=== PATIENT | female | born 1965 | race Caucasian/White ===

== ENCOUNTER 2016-08-07 12:44 | Emergency (ER) | payer OTHER, SELFPAY ==
--- NOTE | 2016-08-07 14:01 | REP ---
Clinical: Cough. Comparison: 03/20/2016 . Technique: PA and lateral. Findings: The mediastinum and cardiac silhouette are normal. The lung solares are clear and without acute consolidation, effusion, or pneumothorax. The skeletal structures are intact and normal. Impression: 1. No acute cardiopulmonary process. Signed by Shabbir Kang MD 08/07/2016 01:52 P
[2016-08-07 14:04] LABS: BASO % 0.7 % (0.0-1.0); EOS # 0.1 K/mm3 (0.0-0.50); EOS % 1.5 % (0.0-3.0); LARGE UNSTAINED CELL # 0.1 K/mm3 (0.0-0.4); LARGE UNSTAINED CELL % 1.4 % (0.0-4.0); LYMPH # 1.3 K/mm3 (1.5-4.5); LYMPH % 18.3 % (24.0-44.0); MEAN CORPUSCULAR HEMOGLOBIN 32.7 pg (27.0-33.0); MEAN CORPUSCULAR HGB CONC 35.7 g/dl (32.0-36.5); MEAN CORPUSCULAR VOLUME 91.6 fl (80.0-96.0); MONO # 0.3 K/mm3 (0.0-0.8); MONO % 4.4 % (0.0-5.0); NEUTROPHILS # 5.1 K/mm3 (1.8-7.7); NEUTROPHILS % 73.7 % (36.0-66.0); PLATELET COUNT, AUTOMATED 207 k/mm3 (150-450); RED CELL DISTRIBUTION WIDTH 11.7 % (11.5-14.5); WHITE BLOOD COUNT 6.8 K/mm3 (4.0-10.0)
[2016-08-07] MEDS ORDERED: DOXYCYCLINE HYCLATE 100 MG TAB As Ordered ONE (15:06)
--- NOTE | 2016-08-07 15:16 | EDDOCDS ---
Physician Documentation [facility] [employer] Name: Lindsey Howard Age: 51 yrs Sex: Female : 1965 Arrival Date: 08/07/2016 Time: 12:44 Bed 8 Private MD: Rosy, Family Disposition: 08/07 14:57 Critical Care: Critical care not applicable. pc Disposition: 08/07/16 14:59 Discharged to Home/Self Care. Impression: Acute bronchitis, Hemoptysis, Von Willebrand's disease. - Condition is Stable. - Discharge Instructions: Acute Bronchitis, Hemoptysis. - Prescriptions for Doxycycline Monohydrate 100 mg Oral Tablet - take 1 tablet by ORAL route every 12 hours for 10 days; 20 tablet. - Medication Reconciliation, Referral List Call for Appointment, Local Pharmacy Hours form. - [facility]; When: Call to arrange an appointment; Reason: To establish care. - Problem is new. - Symptoms have improved. HPI: 13:51 This 51 yrs old Female presents to ER via Walkin/Carried/Asstd with pc complaints of Cough. 13:51 The history is obtained from the patient. She has had URI symptoms for 2 days and when pc she awoke this morning, she coughed up blood clots and fresh blood. She has coughed up a few more bloody sputums and clots since. She has Von Willebrand's and became concerned. At their worst, the symptoms were moderate. In the emergency department, the symptoms have resolved. The patient has not experienced similar symptoms in the past. The patient has not recently seen a physician. Historical: - Allergies: Codeine Sulfate (Unknown); Erythromycin (Unknown); IODINEIODINE CONTAINING (Hives, Anaphylaxis); Macrobid (Anaphylaxis); PENICILLINS (Anaphylaxis, Hives); seafood (Anaphylaxis); - Home Meds: 1. none - PMHx: Von Willebrand Disease; - PSHx: uterus suspension; LEEP Procedure; CONE biopsy; - The history from nurses notes was reviewed: and elements of the historical information I have obtained differs from that reported to nursing. - Social history: Smoking status: Patient uses tobacco products, light tobacco smoker. No barriers to communication noted, The patient speaks fluent Welsh. - : The pt / caregiver states he / she is not on anticoagulants. Home medication list is obtained from the patient. - Hospitalizations: : No recent hospitalization is reported. - Exposure Risk Screening:: None identified. - Immunization history:: All immunizations up-to-date. - Family history: Not pertinent. - Social history:: the patient smokes cigarettes 2ppd the patient drinks alcohol, socially. ROS: 13:54 All systems are negative except as listed. pc Exam: 13:54 General Appearance: no acute distress, alert. pc 13:54 EENT: normal eye inspection, ears, nose and throat normal, pharynx normal, mucous membranes moist 13:54 Neck: The exam reveals no acute abnormalities. ROM is normal and painless. No nuchal rigidity is noted.. 13:54 Respiratory: no respiratory distress, normal breath sounds, chest non-tender. 13:54 CVS: regular pulse rate, regular rhythm, normal S1 and S2, no murmurs, strong peripheral pulses. 13:54 Abdomen: soft, non-tender, no organomegaly, normal bowel sounds. 13:54 Back: normal inspection. 13:54 Skin: skin color is normal, warm, dry. 13:54 Extremities: The extremities have a grossly normal appearance, are non-tender, without acute ROM abnormalities. 13:54 Neuro: oriented x 3, cranial nerves normal as tested, no motor deficits, no sensory deficits. 13:54 Psych: normal mood. Vital Signs: 12:47 BP 122 / 62; Pulse 89; Resp 18 S; Temp 98.9(O); Pulse Ox 100% on R/A; Weight 68.04 kg / dd6 150 lbs (R); Height 5 ft. 7 in. (170.18 cm) (R); 13:02 BP 125 / 60 (auto/); ms18 13:03 Pulse 76 MON; Pulse Ox 100% ; ms18 13:16 Pulse 74 MON; Pulse Ox 99% ; ms18 13:17 BP 115 / 58 (auto/); ms18 13:31 Pulse 74 MON; Pulse Ox 100% ; ms18 13:32 BP 117 / 59 (auto/); ms18 13:47 BP 117 / 58 (auto/); ms18 13:48 Pulse 68 MON; Pulse Ox 99% ; ms18 15:14 BP 107 / 65 LA Supine (auto/reg); Pulse 68 RA; Resp 18; Temp 97.9(O); Pulse Ox 99% on tk R/A; Pain 0/10; 12:47 Body Mass Index 23.49 (68.04 kg, 170.18 cm) dd6 MDM: 13:00 ECG WITH READING ER PHYS+CARDIAG ordered. EDMS 13:17 Test interpretation: EKG. pc 13:34 CBC with Diff Ordered. EDMS 13:34 Chest, 2 View (pa\E\lat) Ordered. EDMS 13:54 Differential Diagnosis: hemoptysis; Von Willebrand;. Plan: lab, CXR. Data reviewed: old medical records, vital signs, nurses notes, lab test results, all radiology studies and available results. Test interpretation: X-RAY - interpreted by Radiologist and personally reviewed, 2 view chest, no acute disease. 14:04 [facility] Payment Agreement was scanned into [employer] and attached to record. jp5 14:04 Financial registration complete. jp5 14:12 CBC with Diff Reviewed. pc 14:37 Chest, 2 View (pa\E\lat) Reviewed. pc 14:57 The patient has been re-examined and re-evaluated. The clinical presentation did not pc require any ED treatment or interventions. Physician consultation: Dr. Jero Burk regarding patient's condition, and he advises using ABX and for PCP follow up. Disposition: The historical points, examination findings, and any diagnostic results supporting the provided diagnosis, were discussed with the patient or legal guardian. The need for outpatient follow up with the provider listed on their discharge instructions was discussed. They were encouraged to return to [facility], or the nearest ED, if symptoms worsen/persist, or for any other questions/concerns. 14:58 Doxycycline 100 mg PO once ordered. pc EC:17 Rate is 68 beats/min. Rhythm is regular, Normal Sinus Rhythm. QRS [place] is Normal. [place] pc interval is shortened at 119 msec. QRS interval is normal. QT interval is normal. No Q waves. T waves are Normal. No ST changes noted. Clinical impression: Normal Sinus Rhythm and Incomplete RBBB. Administered Medications: 15:13 Not Given (Patient Refused): Doxycycline 100 mg PO once ck1 Signatures: Dispatcher [employer] EDMS Rodolfo Mott MD MD pc Kim-Ashcraft, Connie, RN RN ck1 Kami Herrera RN RN rs3 Leonor Jones jp5 The chart was reviewed and I authenticate all verbal orders and agree with the evaluation and treatment provided.Corrections: (The following items were deleted from the chart) 13:51 12:51 PMHx: Right ventricle blockage; rs3 pc 13:54 13:51 PMHx: none; pc pc Attachments: 14:04 [facility] Payment Agreement jp5 MTDD
--- NOTE | 2016-08-07 15:16 | EDDOCDS ---
Nurse's Notes [facility] Name: Lindsey Howard Age: 51 yrs Sex: Female : 1965 Arrival Date: 08/07/2016 Time: 12:44 Bed 8 Private MD: Rosy, Family Dr Diagnosis: Acute bronchitis;Hemoptysis;Von Willebrand's disease Presentation: 08/07 12:49 Presenting complaint: Patient states: chest tightness and coughing up blood since this rs3 morning. chest pain radiates to Left arm since last night. Aspirin was not taken prior to arrival. Adult Sepsis Screening: The patient does not have new or worsening altered mentation. Patient's respiratory rate is less than 22. Systolic blood pressure is greater than 100. Patient has a qSOFA score of 0- Negative Sepsis Screen. Suicide/Homicide risk assessment- the patient denies having any suicidal and/or homicidal ideations and does not present with any other emotional, behavioral or mental health complaints. Status: Patient is not a public service representative or dependent. Transition of care: patient was not received from another setting of care. 12:49 Acuity: DIAN Level 3 rs3 12:49 Method Of Arrival: Walkin/Carried/Asstd rs3 Triage Assessment: 12:51 General: Appears in no apparent distress. Pain: Location: chest. HIV screening NA for rs3 this visit Offered previously. Cardiovascular: Chest pain is described as Pain is 7 out of 10 on a pain scale. radiates to left arm(s) episodes are intermittent began last night. Historical: - Allergies: Codeine Sulfate (Unknown); Erythromycin (Unknown); IODINEIODINE CONTAINING (Hives, Anaphylaxis); Macrobid (Anaphylaxis); PENICILLINS (Anaphylaxis, Hives); seafood (Anaphylaxis); - Home Meds: 1. none - PMHx: Von Willebrand Disease; - PSHx: uterus suspension; LEEP Procedure; CONE biopsy; - The history from nurses notes was reviewed: and elements of the historical information I have obtained differs from that reported to nursing. - Social history: Smoking status: Patient uses tobacco products, light tobacco smoker. No barriers to communication noted, The patient speaks fluent Bangladeshi. - : The pt / caregiver states he / she is not on anticoagulants. Home medication list is obtained from the patient. - Hospitalizations: : No recent hospitalization is reported. - Exposure Risk Screening:: None identified. - Immunization history:: All immunizations up-to-date. - Family history: Not pertinent. - Social history:: the patient smokes cigarettes 2ppd the patient drinks alcohol, socially. Screenin:14 Screening information is obtained from the patient. Fall risk: No risks identified. ck1 Assistance ADL's: requires no assistance with activities of daily living. Abuse/DV Screen: The patient / caregiver reports he/she is: not in a situation that causes fear, pain or injury. Nutritional screening: No deficits noted. Advance Directives: Currently, there is no health care proxy. home support is adequate. Assessment: 13:55 General: Appears in no apparent distress, comfortable, Behavior is appropriate for age, ms18 cooperative. Neurological: Level of Consciousness is awake, alert, obeys commands, Oriented to person, place, time. Cardiovascular: Capillary refill < 3 seconds. Respiratory: Airway is patent Respiratory effort is even, unlabored, Reports shortness of breath cough that is. Derm: Skin is pink, warm & dry. 15:15 General: Appears in no apparent distress, comfortable, Behavior is appropriate for age, ck1 cooperative. Neurological: Level of Consciousness is awake, alert, obeys commands, Oriented to person, place, time. Cardiovascular: Rhythm is regular. Respiratory: Respiratory effort is unlabored, Respiratory pattern is regular, symmetrical. Derm: Skin is pink, warm & dry. Vital Signs: 12:47 BP 122 / 62; Pulse 89; Resp 18 S; Temp 98.9(O); Pulse Ox 100% on R/A; Weight 68.04 kg dd6 (R); Height 5 ft. 7 in. (170.18 cm) (R); 13:02 BP 125 / 60 (auto/); ms18 13:03 Pulse 76 MON; Pulse Ox 100% ; ms18 13:16 Pulse 74 MON; Pulse Ox 99% ; ms18 13:17 BP 115 / 58 (auto/); ms18 13:31 Pulse 74 MON; Pulse Ox 100% ; ms18 13:32 BP 117 / 59 (auto/); ms18 13:47 BP 117 / 58 (auto/); ms18 13:48 Pulse 68 MON; Pulse Ox 99% ; ms18 15:14 BP 107 / 65 LA Supine (auto/reg); Pulse 68 RA; Resp 18; Temp 97.9(O); Pulse Ox 99% on tk R/A; Pain 0/10; 12:47 Body Mass Index 23.49 (68.04 kg, 170.18 cm) dd6 Vitals: 12:47 Log In Time: August 07, 2016 at 12:45. dd6 12:48 RN notified that patient meets Red Flag criteria. dd6 ED Course: 12:46 Patient visited by Seth Stark PCA. dd6 12:46 Unknown, Family Dr is Private Physician. dd6 12:46 Patient moved to Waiting dd6 12:50 Triage Initiated rs3 12:53 Lizzie King,RN is Primary Nurse. rs3 12:53 Sydnee Gavin,CASTILLO is Primary Nurse. rs3 12:53 Patient moved to 8 rs3 13:03 The patient / caregiver is instructed regarding the plan of care and ED course. ms18 Property :Personal belongings accompany Pt. 13:11 EKG done. (by ED staff). Reviewed by Rodolfo Mott MD. rs6 13:12 Patient visited by Patience Diop PCA. rs6 13:12 Rodolfo Mott MD is Attending Physician. pc 13:12 Patient visited by Patience Diop PCA. rs6 13:12 Pt greeted and oriented to ED. Patient advised of names of staff involved in care, rs6 location of call [facility], wait times and NPO status. Accompanied by Significant Other, Patient has correct armband on for positive identification. Placed in gown. Bed in low position. Call light in reach. Side rails up X 1. mat tester on. Pulse ox on. NIBP on. 13:12 Assisted to bathroom. rs6 13:13 Patient visited by Patience Diop PCA. rs6 13:21 Patient visited by Rodolfo Mott MD. pc 13:38 Patient visited by Masha King RN. ms18 13:38 Patient moved to Radiology ms18 13:47 Patient moved to 8 ms18 13:55 Patient visited by Masha King RN. ms18 13:55 CBC with Diff Sent. ms18 13:59 Patient name changed from Lindsey\S\M\S\Paro\S\ to Lindsey\S\Indu\S\Paro. EDMS 14:04 [facility] Payment Agreement was scanned into [employer] and attached to record. jp5 14:26 Chest, 2 View (pa\E\lat) Returned. EDMS 14:56 Patient visited by Rodolfo Mott MD. pc 14:59 [facility] is Referral Physician. pc 15:13 No IV's were initiated during this patient's visit. No procedures done that require ck1 assistance. 15:14 Patient visited by Mani Santos. tk Administered Medications: 15:13 Not Given (Patient Refused): Doxycycline 100 mg PO once ck1 Order Results: Lab Order: CBC with Diff; SPEC'M 08/07/16 13:53 Test: WHITE BLOOD COUNT; Value: 6.8; Range: 4.0-10.0; Units: K/mm3; Status: F Test: RED BLOOD COUNT; Value: 4.66; Range: 4.00-5.40; Units: M/mm3; Status: F Test: HEMOGLOBIN; Value: 15.2; Range: 12.0-16.0; Units: g/dl; Status: F Test: HEMATOCRIT; Value: 42.7; Range: 36.0-47.0; Units: %; Status: F Test: MEAN CORPUSCULAR VOLUME; Value: 91.6; Range: 80.0-96.0; Units: fl; Status: F Test: MEAN CORPUSCULAR HEMOGLOBIN; Value: 32.7; Range: 27.0-33.0; Units: pg; Status: F Test: MEAN CORPUSCULAR HGB CONC; Value: 35.7; Range: 32.0-36.5; Units: g/dl; Status: F Test: RED CELL DISTRIBUTION WIDTH; Value: 11.7; Range: 11.5-14.5; Units: %; Status: F Test: PLATELET COUNT, AUTOMATED; Value: 207; Range: 150-450; Units: k/mm3; Status: F Test: NEUTROPHILS %; Value: 73.7; Range: 36.0-66.0; Abnormal: Above high normal; Units: %; Status: F Test: LYMPH %; Value: 18.3; Range: 24.0-44.0; Abnormal: Below low normal; Units: %; Status: F Test: MONO %; Value: 4.4; Range: 0.0-5.0; Units: %; Status: F Test: EOS %; Value: 1.5; Range: 0.0-3.0; Units: %; Status: F Test: BASO %; Value: 0.7; Range: 0.0-1.0; Units: %; Status: F Test: LARGE UNSTAINED CELL %; Value: 1.4; Range: 0.0-4.0; Units: %; Status: F Test: NEUTROPHILS #; Value: 5.1; Range: 1.8-7.7; Units: K/mm3; Status: F Test: LYMPH #; Value: 1.3; Range: 1.5-4.5; Abnormal: Below low normal; Units: K/mm3; Status: F Test: MONO #; Value: 0.3; Range: 0.0-0.8; Units: K/mm3; Status: F Test: EOS #; Value: 0.1; Range: 0.0-0.50; Units: K/mm3; Status: F Test: BASO #; Value: 0.0; Range: 0.0-0.2; Units: K/mm3; Status: F Test: LARGE UNSTAINED CELL #; Value: 0.1; Range: 0.0-0.4; Units: K/mm3; Status: F Radiology Order: Chest, 2 View (pa\E\lat) Test: Chest, 2 View (pa\E\lat) REASON FOR EXAMINATION: Cough; Clinical: Cough.; ; Comparison: 03/20/2016 .; ; Technique: PA and lateral.; ; Findings:; The mediastinum and cardiac silhouette are normal. The lung solares are clear and; without acute consolidation, effusion, or pneumothorax. The skeletal structures; are intact and normal.; ; Impression:; 1. No acute cardiopulmonary process.; ; ; Signed by; Shabbir Kang MD 08/07/2016 01:52 P; Outcome: 14:59 Discharge ordered by Provider. pc 15:14 Discharge Assessment: Patient awake, alert and oriented x 3. No cognitive and/or ck1 functional deficits noted. Patient verbalized understanding of disposition instructions. patient administered narcotics - no. The following High Risk Discharge criteria are identified: None. Discharged to home ambulatory, with family. Condition: stable. Discharge instructions given to patient, family, Instructed on discharge instructions, follow up and referral plans. medication usage, Demonstrated understanding of instructions, medications, Pt was receptive of discharge instructions/ teaching. Prescriptions given X 1. No special radiology studies were completed. 15:15 Patient left the ED. ck1 Signatures: Dispatcher [employer] EDMS Rodolfo Mott MD MD pc Kim-Ashcraft, Connie, RN RN ck1 Seth Stark, NEWSPAPER WRITER NEWSPAPER WRITER dd6 Kami Herrera RN RN rs3 Masha King RN RN ms18 Patience Diop, NEWSPAPER WRITER NEWSPAPER WRITER rs6 Leonor Jones jp5 Mani Santos Corrections: (The following items were deleted from the chart) 12:53 12:49 Presenting complaint: Patient states: chest tightness and coughing up blood since rs3 this morning. rs3 13:13 13:11 EKG done. (by ED staff). Reviewed by Laura JUNG rs6 rs6 13:51 12:51 PMHx: Right ventricle blockage; rs3 pc 13:54 13:51 PMHx: none; pc pc MTDD
--- NOTE | 2016-08-08 13:03 | ECGEPIP ---
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
--- NOTE | 2016-08-09 16:16 | EDDOCDS ---
Physician Documentation [facility] Name: Lindsey Howard Age: 51 yrs Sex: Female : 1965 Arrival Date: 08/07/2016 Time: 12:44 Bed 8 Private MD: Rosy, Family Disposition: 08/07 14:57 Critical Care: Critical care not applicable. pc Disposition: 08/07/16 14:59 Discharged to Home/Self Care. Impression: Acute bronchitis, Hemoptysis, Von Willebrand's disease. - Condition is Stable. - Discharge Instructions: Acute Bronchitis, Hemoptysis. - Prescriptions for Doxycycline Monohydrate 100 mg Oral Tablet - take 1 tablet by ORAL route every 12 hours for 10 days; 20 tablet. - Medication Reconciliation, Referral List Call for Appointment, Local Pharmacy Hours form. - Follow [facility]; When: Call to arrange an appointment; Reason: To establish care. - Problem is new. - Symptoms have improved. HPI: 13:51 This 51 yrs old Female presents to ER via Walkin/Carried/Asstd with pc complaints of Cough. 13:51 The history is obtained from the patient. She has had URI symptoms for 2 days and when pc she awoke this morning, she coughed up blood clots and fresh blood. She has coughed up a few more bloody sputums and clots since. She has Von Willebrand's and became concerned. At their worst, the symptoms were moderate. In the emergency department, the symptoms have resolved. The patient has not experienced similar symptoms in the past. The patient has not recently seen a physician. Historical: - Allergies: Codeine Sulfate (Unknown); Erythromycin (Unknown); IODINEIODINE CONTAINING (Hives, Anaphylaxis); Macrobid (Anaphylaxis); PENICILLINS (Anaphylaxis, Hives); seafood (Anaphylaxis); - Home Meds: 1. none - PMHx: Von Willebrand Disease; - PSHx: uterus suspension; LEEP Procedure; CONE biopsy; - The history from nurses notes was reviewed: and elements of the historical information I have obtained differs from that reported to nursing. - Social history: Smoking status: Patient uses tobacco products, light tobacco smoker. No barriers to communication noted, The patient speaks fluent Hebrew. - : The pt / caregiver states he / she is not on anticoagulants. Home medication list is obtained from the patient. - Hospitalizations: : No recent hospitalization is reported. - Exposure Risk Screening:: None identified. - Immunization history:: All immunizations up-to-date. - Family history: Not pertinent. - Social history:: the patient smokes cigarettes 2ppd the patient drinks alcohol, socially. ROS: 13:54 All systems are negative except as listed. pc Exam: 13:54 General Appearance: no acute distress, alert. pc 13:54 EENT: normal eye inspection, ears, nose and throat normal, pharynx normal, mucous membranes moist 13:54 Neck: The exam reveals no acute abnormalities. ROM is normal and painless. No nuchal rigidity is noted.. 13:54 Respiratory: no respiratory distress, normal breath sounds, chest non-tender. 13:54 CVS: regular pulse rate, regular rhythm, normal S1 and S2, no murmurs, strong peripheral pulses. 13:54 Abdomen: soft, non-tender, no organomegaly, normal bowel sounds. 13:54 Back: normal inspection. 13:54 Skin: skin color is normal, warm, dry. 13:54 Extremities: The extremities have a grossly normal appearance, are non-tender, without acute ROM abnormalities. 13:54 Neuro: oriented x 3, cranial nerves normal as tested, no motor deficits, no sensory deficits. 13:54 Psych: normal mood. Vital Signs: 12:47 BP 122 / 62; Pulse 89; Resp 18 S; Temp 98.9(O); Pulse Ox 100% on R/A; Weight 68.04 kg / dd6 150 lbs (R); Height 5 ft. 7 in. (170.18 cm) (R); 13:02 BP 125 / 60 (auto/); ms18 13:03 Pulse 76 MON; Pulse Ox 100% ; ms18 13:16 Pulse 74 MON; Pulse Ox 99% ; ms18 13:17 BP 115 / 58 (auto/); ms18 13:31 Pulse 74 MON; Pulse Ox 100% ; ms18 13:32 BP 117 / 59 (auto/); ms18 13:47 BP 117 / 58 (auto/); ms18 13:48 Pulse 68 MON; Pulse Ox 99% ; ms18 15:14 BP 107 / 65 LA Supine (auto/reg); Pulse 68 RA; Resp 18; Temp 97.9(O); Pulse Ox 99% on tk R/A; Pain 0/10; 12:47 Body Mass Index 23.49 (68.04 kg, 170.18 cm) dd6 MDM: 13:00 ECG WITH READING ER PHYS+CARDIAG ordered. EDMS 13:17 Test interpretation: EKG. pc 13:34 CBC with Diff Ordered. EDMS 13:34 Chest, 2 View (pa\E\lat) Ordered. EDMS 13:54 Differential Diagnosis: hemoptysis; Von Willebrand;. Plan: lab, CXR. Data reviewed: old medical records, vital signs, nurses notes, lab test results, all radiology studies and available results. Test interpretation: X-RAY - interpreted by Radiologist and personally reviewed, 2 view chest, no acute disease. 14:04 [facility] Payment Agreement was scanned into [employer] and attached to record. [facility] 14:04 Financial registration complete. jp5 14:12 CBC with Diff Reviewed. pc 14:37 Chest, 2 View (pa\E\lat) Reviewed. pc 14:57 The patient has been re-examined and re-evaluated. The clinical presentation did not pc require any ED treatment or interventions. Physician consultation: Dr. Jero Burk regarding patient's condition, and he advises using ABX and for PCP follow up. Disposition: The historical points, examination findings, and any diagnostic results supporting the provided diagnosis, were discussed with the patient or legal guardian. The need for outpatient follow up with the provider listed on their discharge instructions was discussed. They were encouraged to return to [facility], or the nearest ED, if symptoms worsen/persist, or for any other questions/concerns. 14:58 Doxycycline 100 mg PO once ordered. 08/08 12:05 ECG/EKG was scanned into [employer] and attached to record. EC/15 13:17 Rate is 68 beats/min. Rhythm is regular, Normal Sinus Rhythm. QRS [place] is Normal. [place] pc interval is shortened at 119 msec. QRS interval is normal. QT interval is normal. No Q waves. T waves are Normal. No ST changes noted. Clinical impression: Normal Sinus Rhythm and Incomplete RBBB. Administered Medications: 15:13 Not Given (Patient Refused): Doxycycline 100 mg PO once ck1 Signatures: Dispatcher [employer] EDTX Rodolfo Mott MD MD pc Barnhardt, Gloria, Reg Reg Sydnee Gavin RN RN ck1 Kami Herrera,RN RN rs3 Leonor Jones jp5 The chart was reviewed and I authenticate all verbal orders and agree with the evaluation and treatment provided.Corrections: (The following items were deleted from the chart) 13:51 12:51 PMHx: Right ventricle blockage; rs3 pc 13:54 13:51 PMHx: none; pc pc Attachments: 14:04 [facility] Payment Agreement jp5 08/08 12:05 ECG/EKG gb Chart Complete MTDD
--- NOTE | 2016-08-09 16:16 | EDDOCDS ---
Physician Documentation [facility] Name: Lindsey Howard Age: 51 yrs Sex: Female : 1965 Arrival Date: 08/07/2016 Time: 12:44 Bed 8 Private MD: Rosy, Family Disposition: 08/07 14:57 Critical Care: Critical care not applicable. pc Disposition: 08/07/16 14:59 Discharged to Home/Self Care. Impression: Acute bronchitis, Hemoptysis, Von Willebrand's disease. - Condition is Stable. - Discharge Instructions: Acute Bronchitis, Hemoptysis. - Prescriptions for Doxycycline Monohydrate 100 mg Oral Tablet - take 1 tablet by ORAL route every 12 hours for 10 days; 20 tablet. - Medication Reconciliation, Referral List Call for Appointment, Local Pharmacy Hours form. - [facility] up[facility]; When: Call to arrange an appointment; Reason: To establish care. - Problem is new. - Symptoms have improved. HPI: 13:51 This 51 yrs old Female presents to ER via Walkin/Carried/Asstd with pc complaints of Cough. 13:51 The history is obtained from the patient. She has had URI symptoms for 2 days and when pc she awoke this morning, she coughed up blood clots and fresh blood. She has coughed up a few more bloody sputums and clots since. She has Von Willebrand's and became concerned. At their worst, the symptoms were moderate. In the emergency department, the symptoms have resolved. The patient has not experienced similar symptoms in the past. The patient has not recently seen a physician. Historical: - Allergies: Codeine Sulfate (Unknown); Erythromycin (Unknown); IODINEIODINE CONTAINING (Hives, Anaphylaxis); Macrobid (Anaphylaxis); PENICILLINS (Anaphylaxis, Hives); seafood (Anaphylaxis); - Home Meds: 1. none - PMHx: Von Willebrand Disease; - PSHx: uterus suspension; LEEP Procedure; CONE biopsy; - The history from nurses notes was reviewed: and elements of the historical information I have obtained differs from that reported to nursing. - Social history: Smoking status: Patient uses tobacco products, light tobacco smoker. No barriers to communication noted, The patient speaks fluent Telugu. - : The pt / caregiver states he / she is not on anticoagulants. Home medication list is obtained from the patient. - Hospitalizations: : No recent hospitalization is reported. - Exposure Risk Screening:: None identified. - Immunization history:: All immunizations up-to-date. - Family history: Not pertinent. - Social history:: the patient smokes cigarettes 2ppd the patient drinks alcohol, socially. ROS: 13:54 All systems are negative except as listed. pc Exam: 13:54 General Appearance: no acute distress, alert. pc 13:54 EENT: normal eye inspection, ears, nose and throat normal, pharynx normal, mucous membranes moist 13:54 Neck: The exam reveals no acute abnormalities. ROM is normal and painless. No nuchal rigidity is noted.. 13:54 Respiratory: no respiratory distress, normal breath sounds, chest non-tender. 13:54 CVS: regular pulse rate, regular rhythm, normal S1 and S2, no murmurs, strong peripheral pulses. 13:54 Abdomen: soft, non-tender, no organomegaly, normal bowel sounds. 13:54 Back: normal inspection. 13:54 Skin: skin color is normal, warm, dry. 13:54 Extremities: The extremities have a grossly normal appearance, are non-tender, without acute ROM abnormalities. 13:54 Neuro: oriented x 3, cranial nerves normal as tested, no motor deficits, no sensory deficits. 13:54 Psych: normal mood. Vital Signs: 12:47 BP 122 / 62; Pulse 89; Resp 18 S; Temp 98.9(O); Pulse Ox 100% on R/A; Weight 68.04 kg / dd6 150 lbs (R); Height 5 ft. 7 in. (170.18 cm) (R); 13:02 BP 125 / 60 (auto/); ms18 13:03 Pulse 76 MON; Pulse Ox 100% ; ms18 13:16 Pulse 74 MON; Pulse Ox 99% ; ms18 13:17 BP 115 / 58 (auto/); ms18 13:31 Pulse 74 MON; Pulse Ox 100% ; ms18 13:32 BP 117 / 59 (auto/); ms18 13:47 BP 117 / 58 (auto/); ms18 13:48 Pulse 68 MON; Pulse Ox 99% ; ms18 15:14 BP 107 / 65 LA Supine (auto/reg); Pulse 68 RA; Resp 18; Temp 97.9(O); Pulse Ox 99% on tk R/A; Pain 0/10; 12:47 Body Mass Index 23.49 (68.04 kg, 170.18 cm) dd6 MDM: 13:00 ECG WITH READING ER PHYS+CARDIAG ordered. EDMS 13:17 Test interpretation: EKG. pc 13:34 CBC with Diff Ordered. EDMS 13:34 Chest, 2 View (pa\E\lat) Ordered. EDMS 13:54 Differential Diagnosis: hemoptysis; Von Willebrand;. Plan: lab, CXR. Data reviewed: old medical records, vital signs, nurses notes, lab test results, all radiology studies and available results. Test interpretation: X-RAY - interpreted by Radiologist and personally reviewed, 2 view chest, no acute disease. 14:04 [facility] Payment Agreement was scanned into [employer] and attached to record. [facility] 14:04 Financial registration complete. jp5 14:12 CBC with Diff Reviewed. pc 14:37 Chest, 2 View (pa\E\lat) Reviewed. pc 14:57 The patient has been re-examined and re-evaluated. The clinical presentation did not pc require any ED treatment or interventions. Physician consultation: Dr. Jero Burk regarding patient's condition, and he advises using ABX and for PCP follow up. Disposition: The historical points, examination findings, and any diagnostic results supporting the provided diagnosis, were discussed with the patient or legal guardian. The need for outpatient follow up with the provider listed on their discharge instructions was discussed. They were encouraged to return to [facility], or the nearest ED, if symptoms worsen/persist, or for any other questions/concerns. 14:58 Doxycycline 100 mg PO once ordered. 08/08 12:05 ECG/EKG was scanned into [employer] and attached to record. EC/15 13:17 Rate is 68 beats/min. Rhythm is regular, Normal Sinus Rhythm. QRS Shubert is Normal. KS pc interval is shortened at 119 msec. QRS interval is normal. QT interval is normal. No Q waves. T waves are Normal. No ST changes noted. Clinical impression: Normal Sinus Rhythm and Incomplete RBBB. Administered Medications: 15:13 Not Given (Patient Refused): Doxycycline 100 mg PO once ck1 Signatures: Dispatcher [employer] EDVT Rodolfo Mott MD MD pc Barnhardt, Gloria, Reg Reg Sydnee Gavin RN RN ck1 Kami Herrera,RN RN rs3 Leonor Jones jp5 The chart was reviewed and I authenticate all verbal orders and agree with the evaluation and treatment provided.Corrections: (The following items were deleted from the chart) 13:51 12:51 PMHx: Right ventricle blockage; rs3 pc 13:54 13:51 PMHx: none; pc pc Attachments: 14:04 [facility] Payment Agreement jp5 08/08 12:05 ECG/EKG gb Chart Complete MTDD
--- NOTE | 2016-08-09 16:17 | EDDOCDS ---
Nurse's Notes [facility] Name: Lindsey Howard Age: 51 yrs Sex: Female : 1965 Arrival Date: 08/07/2016 Time: 12:44 Bed 8 Private MD: Rosy, Family Dr Diagnosis: Acute bronchitis;Hemoptysis;Von Willebrand's disease Presentation: 08/07 12:49 Presenting complaint: Patient states: chest tightness and coughing up blood since this rs3 morning. chest pain radiates to Left arm since last night. Aspirin was not taken prior to arrival. Adult Sepsis Screening: The patient does not have new or worsening altered mentation. Patient's respiratory rate is less than 22. Systolic blood pressure is greater than 100. Patient has a qSOFA score of 0- Negative Sepsis Screen. Suicide/Homicide risk assessment- the patient denies having any suicidal and/or homicidal ideations and does not present with any other emotional, behavioral or mental health complaints. 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 Transition of care: patient was not received from another setting of care. 12:49 Acuity: DIAN Level 3 rs3 12:49 Method Of Arrival: Walkin/Carried/Asstd rs3 Triage Assessment: 12:51 General: Appears in no apparent distress. Pain: Location: chest. HIV screening NA for rs3 this visit Offered previously. Cardiovascular: Chest pain is described as Pain is 7 out of 10 on a pain scale. radiates to left arm(s) episodes are intermittent began last night. Historical: - Allergies: Codeine Sulfate (Unknown); Erythromycin (Unknown); IODINEIODINE CONTAINING (Hives, Anaphylaxis); Macrobid (Anaphylaxis); PENICILLINS (Anaphylaxis, Hives); seafood (Anaphylaxis); - Home Meds: 1. none - PMHx: Von Willebrand Disease; - PSHx: uterus suspension; LEEP Procedure; CONE biopsy; - The history from nurses notes was reviewed: and elements of the historical information I have obtained differs from that reported to nursing. - Social history: Smoking status: Patient uses tobacco products, light tobacco smoker. No barriers to communication noted, The patient speaks fluent Paraguayan. - : The pt / caregiver states he / she is not on anticoagulants. Home medication list is obtained from the patient. - Hospitalizations: : No recent hospitalization is reported. - Exposure Risk Screening:: None identified. - Immunization history:: All immunizations up-to-date. - Family history: Not pertinent. - Social history:: the patient smokes cigarettes 2ppd the patient drinks alcohol, socially. Screenin:14 Screening information is obtained from the patient. Fall risk: No risks identified. ck1 Assistance ADL's: requires no assistance with activities of daily living. Abuse/DV Screen: The patient / caregiver reports he/she is: not in a situation that causes fear, pain or injury. Nutritional screening: No deficits noted. Advance Directives: Currently, there is no health care proxy. home support is adequate. Assessment: 13:55 General: Appears in no apparent distress, comfortable, Behavior is appropriate for age, ms18 cooperative. Neurological: Level of Consciousness is awake, alert, obeys commands, Oriented to person, place, time. Cardiovascular: Capillary refill < 3 seconds. Respiratory: Airway is patent Respiratory effort is even, unlabored, Reports shortness of breath cough that is. Derm: Skin is pink, warm & dry. 15:15 General: Appears in no apparent distress, comfortable, Behavior is appropriate for age, ck1 cooperative. Neurological: Level of Consciousness is awake, alert, obeys commands, Oriented to person, place, time. Cardiovascular: Rhythm is regular. Respiratory: Respiratory effort is unlabored, Respiratory pattern is regular, symmetrical. Derm: Skin is pink, warm & dry. Vital Signs: 12:47 BP 122 / 62; Pulse 89; Resp 18 S; Temp 98.9(O); Pulse Ox 100% on R/A; Weight 68.04 kg dd6 (R); Height 5 ft. 7 in. (170.18 cm) (R); 13:02 BP 125 / 60 (auto/); ms18 13:03 Pulse 76 MON; Pulse Ox 100% ; ms18 13:16 Pulse 74 MON; Pulse Ox 99% ; ms18 13:17 BP 115 / 58 (auto/); ms18 13:31 Pulse 74 MON; Pulse Ox 100% ; ms18 13:32 BP 117 / 59 (auto/); ms18 13:47 BP 117 / 58 (auto/); ms18 13:48 Pulse 68 MON; Pulse Ox 99% ; ms18 15:14 BP 107 / 65 LA Supine (auto/reg); Pulse 68 RA; Resp 18; Temp 97.9(O); Pulse Ox 99% on tk R/A; Pain 0/10; 12:47 Body Mass Index 23.49 (68.04 kg, 170.18 cm) dd6 Vitals: 12:47 Log In Time: August 07, 2016 at 12:45. dd6 12:48 RN notified that patient meets Red Flag criteria. dd6 ED Course: 12:46 Patient visited by Seth Stark PCA. dd6 12:46 Unknown, Family Dr is Private Physician. dd6 12:46 Patient moved to Waiting dd6 12:50 Triage Initiated rs3 12:53 Lizzie King,RN is Primary Nurse. rs3 12:53 Sydnee Gavin,CASTILLO is Primary Nurse. rs3 12:53 Patient moved to 8 rs3 13:03 The patient / caregiver is instructed regarding the plan of care and ED course. ms18 Property :Personal belongings accompany Pt. 13:11 EKG done. (by ED staff). Reviewed by Rodolfo Mott MD. rs6 13:12 Patient visited by Patience Diop PCA. rs6 13:12 Rodolfo Mott MD is Attending Physician. pc 13:12 Patient visited by Patience Diop PCA. rs6 13:12 Pt greeted and oriented to ED. Patient advised of names of staff involved in care, rs6 location of call [facility], wait times and NPO status. Accompanied by Significant Other, Patient has correct armband on for positive identification. Placed in gown. Bed in low position. Call light in reach. Side rails up X 1. edge banding machine offbearer on. Pulse ox on. NIBP on. 13:12 Assisted to bathroom. rs6 13:13 Patient visited by Patience Diop PCA. rs6 13:21 Patient visited by Rodolfo Mott MD. pc 13:38 Patient visited by Masha King RN. ms18 13:38 Patient moved to Radiology ms18 13:47 Patient moved to 8 ms18 13:55 Patient visited by Masha King RN. ms18 13:55 CBC with Diff Sent. ms18 13:59 Patient name changed from Lindsey\S\M\S\Paro\S\ to Lindsey\S\Indu\S\Paro. EDMS 14:04 [facility] Payment Agreement was scanned into [email or web address] and attached to record. jp5 14:26 Chest, 2 View (pa\E\lat) Returned. EDMS 14:56 Patient visited by Rodolfo Mott MD. pc 14:59 [facility] is Referral Physician. pc 15:13 No IV's were initiated during this patient's visit. No procedures done that require ck1 assistance. 15:14 Patient visited by Mani Santos. tk 08/08 12:05 ECG/EKG was scanned into [email or web address] and attached to record. gb 13:09 EKG-ADULT Returned. EDMS Administered Medications: 08/07 15:13 Not Given (Patient Refused): Doxycycline 100 mg PO once ck1 Order Results: Lab Order: CBC with Diff; SPEC'M 08/07/16 13:53 Test: WHITE BLOOD COUNT; Value: 6.8; Range: 4.0-10.0; Units: K/mm3; Status: F Test: RED BLOOD COUNT; Value: 4.66; Range: 4.00-5.40; Units: M/mm3; Status: F Test: HEMOGLOBIN; Value: 15.2; Range: 12.0-16.0; Units: g/dl; Status: F Test: HEMATOCRIT; Value: 42.7; Range: 36.0-47.0; Units: %; Status: F Test: MEAN CORPUSCULAR VOLUME; Value: 91.6; Range: 80.0-96.0; Units: fl; Status: F Test: MEAN CORPUSCULAR HEMOGLOBIN; Value: 32.7; Range: 27.0-33.0; Units: pg; Status: F Test: MEAN CORPUSCULAR HGB CONC; Value: 35.7; Range: 32.0-36.5; Units: g/dl; Status: F Test: RED CELL DISTRIBUTION WIDTH; Value: 11.7; Range: 11.5-14.5; Units: %; Status: F Test: PLATELET COUNT, AUTOMATED; Value: 207; Range: 150-450; Units: k/mm3; Status: F Test: NEUTROPHILS %; Value: 73.7; Range: 36.0-66.0; Abnormal: Above high normal; Units: %; Status: F Test: LYMPH %; Value: 18.3; Range: 24.0-44.0; Abnormal: Below low normal; Units: %; Status: F Test: MONO %; Value: 4.4; Range: 0.0-5.0; Units: %; Status: F Test: EOS %; Value: 1.5; Range: 0.0-3.0; Units: %; Status: F Test: BASO %; Value: 0.7; Range: 0.0-1.0; Units: %; Status: F Test: LARGE UNSTAINED CELL %; Value: 1.4; Range: 0.0-4.0; Units: %; Status: F Test: NEUTROPHILS #; Value: 5.1; Range: 1.8-7.7; Units: K/mm3; Status: F Test: LYMPH #; Value: 1.3; Range: 1.5-4.5; Abnormal: Below low normal; Units: K/mm3; Status: F Test: MONO #; Value: 0.3; Range: 0.0-0.8; Units: K/mm3; Status: F Test: EOS #; Value: 0.1; Range: 0.0-0.50; Units: K/mm3; Status: F Test: BASO #; Value: 0.0; Range: 0.0-0.2; Units: K/mm3; Status: F Test: LARGE UNSTAINED CELL #; Value: 0.1; Range: 0.0-0.4; Units: K/mm3; Status: F Radiology Order: EKG-ADULT Test: EKG-ADULT REASON FOR EXAMINATION: Chest Pain; Stationary ECG Study; [facility] - ED; ; Test Date: 2016-08-07; Pat Name: LINDSEY HOWARD Department:; Room: -; 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; : 1965 Requested By: Rodolfo Edouard; Order Number: [id number] Lm MD: Vanessa Quiñones; Measurements; Intervals [place]; Rate: 68 P: 30; MS: 119 QRS: 72; QRSD: 98 T: 66; QT: 433; QTc: 461; Interpretive Statements; SINUS RHYTHM WITH SINUS ARRHYTHMIA WITH SHORT MS INTERVAL; NONSPECIFIC T-WAVE ABNORMALITY; ; Electronically Signed On 08-08-2016 13:03:23 EST by Vanessa Quiñones; Radiology Order: Chest, 2 View (pa\E\lat) Test: Chest, 2 View (pa\E\lat) REASON FOR EXAMINATION: Cough; Clinical: Cough.; ; Comparison: 03/20/2016 .; ; Technique: PA and lateral.; ; Findings:; The mediastinum and cardiac silhouette are normal. The lung solares are clear and; without acute consolidation, effusion, or pneumothorax. The skeletal structures; are intact and normal.; ; Impression:; 1. No acute cardiopulmonary process.; ; ; Signed by; Shabbir Kang MD 08/07/2016 01:52 P; Outcome: 14:59 Discharge ordered by Provider. pc 15:14 Discharge Assessment: Patient awake, alert and oriented x 3. No cognitive and/or ck1 functional deficits noted. Patient verbalized understanding of disposition instructions. patient administered narcotics - no. The following High Risk Discharge criteria are identified: None. Discharged to home ambulatory, with family. Condition: stable. Discharge instructions given to patient, family, Instructed on discharge instructions, follow up and referral plans. medication usage, Demonstrated understanding of instructions, medications, Pt was receptive of discharge instructions/ teaching. Prescriptions given X 1. No special radiology studies were completed. 15:15 Patient left the ED. ck1 Signatures: Dispatcher [employer] EDMS Rodolfo Mott MD MD pc Karime Yu, Reg Reg Sydnee GavinRN RN ck1 Seth Stark, SHUTDOWN COORDINATOR SHUTDOWN COORDINATOR dd6 Kami Herrera RN RN rs3 Masha King RN RN ms18 Patience Diop, SHUTDOWN COORDINATOR SHUTDOWN COORDINATOR rs6 Leonor Jones jp5 Mani Santos Corrections: (The following items were deleted from the chart) 12:53 12:49 Presenting complaint: Patient states: chest tightness and coughing up blood since rs3 this morning. rs3 13:13 13:11 EKG done. (by ED staff). Reviewed by Laura Renteria CREATIVE DIRECTOR rs6 rs6 13:51 12:51 PMHx: Right ventricle blockage; rs3 pc 13:54 13:51 PMHx: none; pc pc Chart Complete MTDD
== END 2016-08-07 15:15 | disposition home or self-care (01) ==
LOC: M ED 12:44
DX: J20.9 Acute bronchitis, unspecified (principal); D68.0 Von Willebrand disease; R04.2 Hemoptysis; F17.210 Nicotine dependence, cigarettes, uncomplicated; Z88.8 Allergy status to other drugs, medicaments and biological substances; Z88.1 Allergy status to other antibiotic agents; Z88.0 Allergy status to penicillin; Z91.013 Allergy to seafood

== ENCOUNTER → 2016-08-30 | Outpatient (REF) | payer OTHER | LOC: M SFHCWAGY 13:58 | PROVIDERS: ATTEND Nurse Practitioner Family | DX: Z12.4 Encounter for screening for malignant neoplasm of cervix (principal) ==

== ENCOUNTER → 2016-08-30 | Outpatient (CLI) | payer OTHER ==
--- NOTE | 2016-08-30 14:46 | REPMRS ---
Patient History The patient states she had a clinical breast exam in 08/2016. Patient is postmenopausal. Family history of breast cancer in mother at age 45. Digital Woman Screen Mammo: August 30, 2016 - Exam #: [id number] Bilateral CC and MLO view(s) were taken. Technologist: Maday Ramos, Technologist Prior study comparison: November 21, 2014, digital woman screen mammo performed at [facility] to [facility]. November 19, 2013, digital woman screen mammo performed at [facility]. November 01, 2012, digital woman screen mammo performed at [facility] to [facility]. FINDINGS: The breast tissue is heterogeneously dense. This may lower the sensitivity of mammography. There is a moderate amount of heterogeneously dense fibroglandular tissue which is fairly symmetric. There is no interval development of dominant mass, architectural distortion, or clustered microcalcification typical of malignancy. There has been no change in the appearance of the mammogram from the prior studies. ASSESSMENT: BI-RADS/ACR category 1 mammogram. Negative. Recommendation Routine screening mammogram of both breasts in 1 year (for women over age 40). This mammogram was interpreted with the aid of an FDA-approved computer-aided dectection system. Electronically Signed By: Robby Stinson MD 08/30/16 [id number]
== END ==
LOC: M WHC 13:24
PROVIDERS: ATTEND Nurse Practitioner Family
DX: Z12.31 Encounter for screening mammogram for malignant neoplasm of breast (principal); Z80.3 Family history of malignant neoplasm of breast

== ENCOUNTER → 2021-08-18 | Outpatient (CLI) | payer OTHER, SELFPAY | LOC: M WHC 12:57 | PROVIDERS: ATTEND Nurse Practitioner Women's Health | DX: Z12.31 Encounter for screening mammogram for malignant neoplasm of breast (principal); Z80.3 Family history of malignant neoplasm of breast ==

== ENCOUNTER → 2021-08-18 | Outpatient (REF) | payer OTHER, SELFPAY | LOC: M SFHCWAGY 17:18 | PROVIDERS: ATTEND Nurse Practitioner Women's Health | DX: Z12.4 Encounter for screening for malignant neoplasm of cervix (principal) | CPT/HCPCS: 87624; G0123 ==

== ENCOUNTER → 2022-10-26 | Outpatient (REF) | payer OTHER | LOC: M WHC 08:00 → EDSTATUS 15:00 | PROVIDERS: ATTEND Advanced Practice Midwife | DX: Z12.31 Encounter for screening mammogram for malignant neoplasm of breast (principal); Z80.3 Family history of malignant neoplasm of breast; Z85.41 Personal history of malignant neoplasm of cervix uteri ==

== ENCOUNTER → 2023-12-14 | Outpatient (CLI) | payer OTHER | LOC: M WHC 13:25 | PROVIDERS: ATTEND Advanced Practice Midwife | DX: Z12.31 Encounter for screening mammogram for malignant neoplasm of breast (principal) ==

== ENCOUNTER → 2024-11-07 | Outpatient (CLI) | payer OTHER | LOC: M WHC 15:20 | PROVIDERS: ATTEND Obstetrics & Gynecology | DX: N95.0 Postmenopausal bleeding (principal) ==

== ENCOUNTER → 2025-01-28 | Outpatient (CLI) | payer OTHER | LOC: M WHC 13:15 | PROVIDERS: ATTEND Advanced Practice Midwife | DX: Z12.31 Encounter for screening mammogram for malignant neoplasm of breast (principal) ==

== ENCOUNTER → 2025-02-12 | Outpatient (REF) | payer OTHER ==
[2025-02-14 22:08] LABS: C-PEPTIDE 2.24 ng/mL (0.80-3.85)
[2025-02-17 23:27] LABS: GAD-65 AUTOANTIBODY < 5 IU/mL (<5)
== END ==
LOC: M LAB REF 17:23
PROVIDERS: ATTEND Internal Medicine
DX: E11.9 Type 2 diabetes mellitus without complications (principal)

== ENCOUNTER → 2025-03-06 | Outpatient (CLI) | payer OTHER | LOC: M RAD 13:43 | PROVIDERS: ATTEND Internal Medicine | DX: Z12.2 Encounter for screening for malignant neoplasm of respiratory organs (principal); F17.210 Nicotine dependence, cigarettes, uncomplicated ==